=== PATIENT | male | born 1990 | race Caucasian/White ===

== ENCOUNTER 2024-02-04 14:54 | Emergency (ER) | payer OTHER ==
--- NOTE | 2024-02-04 15:39 | ERPHSYRPT ---
- History of Present Illness Time Seen by Provider: 02/04/24 15:39 Historian: patient Exam Limitations: no limitations Physician History: The patient presents with acute onset of left-sided rib pain that began two days prior. The pain started after a day of heavy lifting and moving boxes, during which the patient stumbled and dropped a box. The pain has progressively wo rsened, with the patient waking up the following day in severe pain, described as shooting pain along the left lower rib cage, exacerbated by deep breathing. The patient denies any other associated symptoms such as difficulty urinating, bowel changes, nausea, vomiting, diarrhea, constipation, or fever. There is a reported slight shortness of breath, but no cough. The patient has not noticed any blood in her urine and denies any history of kidney stones. The patient has attempted to manage the pain with [id number] Tylenol and Advil, but these have provided no relief. The patient denies any history of blood thinners, stomach ulcers, or kidney problems. Timing/Duration: day(s) (2) Activities at Onset: activity Quality: sharpness, stabbing Abdominal Pain Onset Location: flank (left) Pain Radiation: no radiation Severity of Pain-Max: severe Severity of Pain-Current: severe Modifying Factors: Worsens With: breathing, coughing, exercise, movement, palpation Associated Symptoms: denies symptoms Previous symptoms: no prior history Allergies/Adverse Reactions: No Known Drug Allergies Allergy (Verified 02/04/24 15:37) - Review of Systems All Other Systems: Reviewed and Negative - Nursing Vital Signs Nursing Vital Signs: Initial Vital Signs Blood Pressure 132/94 02/04/24 15:31 Pain Scale Pain Intensity 9 - Physical Exam General Appearance: mild distress, obese Eye Exam: PERRL/EOMI Ears, Nose, Throat Exam: normal ENT inspection Neck Exam: normal inspection, full range of motion Respiratory Exam: normal breath sounds, lungs clear, No respiratory distress, No airway intact Cardiovascular Exam: regular rate/rhythm, capillary refill <2 sec, No edema Gastrointestinal/Abdomen Exam: soft, No tenderness, No distention, No mass, No guarding, No rebound Back Exam: normal inspection, other (left sided rib pain, mid axillary line to sternum along ribs 3-9), No CVA tenderness, No muscle spasm Neurologic Exam: alert, oriented x 3, cooperative Skin Exam: normal color, warm, dry SpO2 Interpretation: normal O2 Delivery: Room Air - Course Nursing assessment & vital signs reviewed: Yes - CT Exams Abdomen/Pelvis CT Interpretation: Tele-radiologist Report, Normal Appendix, Other (mild hepatomegaly, bilateral pars fx L5/S1) Ordered Tests: Medication Summary Discontinued Medications Generic Name Dose Route Start Last Admin Trade Name Pierre PRN Reason Stop Dose Admin Cyclobenzaprine HCl 10 mg 02/04/24 15:41 02/04/24 16:21 Cyclobenzaprine Hcl 10 Mg Tablet PO 02/04/24 15:42 10 mg STAT ONE Administration Cyclobenzaprine HCl Confirm 02/04/24 16:11 Cyclobenzaprine Hcl 10 Mg Tablet Administered 02/04/24 16:12 Dose 10 mg .ROUTE .STK-MED ONE Sodium Chloride 1,000 mls @ 999 mls/hr 02/04/24 15:39 02/04/24 17:21 Sodium Chloride 0.9% 1000 Ml IV 02/04/24 16:39 Infused .Q1H1M STA Infusion Sodium Chloride Confirm 02/04/24 16:11 Sodium Chloride 0.9% 1000 Ml Administered 02/04/24 16:12 Dose 1,000 mls @ ud .ROUTE .STK-MED ONE Ketorolac Tromethamine 30 mg 02/04/24 15:39 02/04/24 16:19 Ketorolac Tromethamine 30 Mg/Ml Inj IV 02/04/24 15:40 30 mg STAT ONE Administration Ketorolac Tromethamine Confirm 02/04/24 16:11 Ketorolac Tromethamine 30 Mg/Ml Inj Administered 02/04/24 16:12 Dose 30 mg .ROUTE .STK-MED ONE Lidocaine 1 patch 02/04/24 15:45 02/04/24 16:21 Lidocaine Hcl 1 Patch Patch TOP 02/04/24 15:46 1 patch ONCE ONE Administration Lab/Rad Data: Laboratory Result Diagrams 02/04/24 16:00 02/04/24 16:00 Laboratory Results 02/04/24 02/04/24 02/04/24 Range/Units 16:00 16:00 15:42 WBC 5.5 (4.23-9.07) x10^3/uL RBC 4.70 (4.63-6.08) x10^6/uL Hgb 14.6 (13.7-17.5) g/dL Hct 42.9 (40.1-51.0) % MCV 91.3 (79.0-92.2) fL MCH 31.1 (25.7-32.2) pg MCHC 34.0 (32.3-36.5) g/dL RDW 12.9 (11.6-14.4) % Plt Count 290 (163-337) x10^3/uL MPV 9.4 (9.4-12.4) fL Gran % 60.9 (34.0-67.9) % Immature Gran % (Auto) 0.2 (0.001-0.429) % Nucleat RBC Rel Count 0.0 (0.00-0.2) % Eos # (Auto) 0.06 (0.04-0.54) x10^3/uL Immature Gran # (Auto) 0.01 (0.001-0.031) x10^3u/L Absolute Lymphs (auto) 1.48 (1.32-3.57) x10^3/uL Absolute Monos (auto) 0.57 (0.30-0.82) x10^3/uL Absolute Nucleated RBC 0.00 (0.00-0.012) x10^3u/L Lymphocytes % 27.0 (21.8-53.1) % Monocytes % 10.4 (5.3-12.2) % Eosinophils % 1.1 (0.8-7.0) % Basophils % 0.4 (0.2-1.2) % Absolute Granulocytes 3.34 (1.78-5.38) x10^3/uL Basophils # 0.02 (0.01-0.08) x10^3/uL Sodium 139 (135-145) mmol/L Potassium 3.5 (3.5-5.1) mmol/L Chloride 103 (98-107) mmol/L Carbon Dioxide 32 H (22-30) mmol/L Anion Gap 7.6 (5-15) MEQ/L BUN 5 L (9-20) mg/dL Creatinine 0.74 (0.66-1.25) mg/dL Estimated GFR 121.2 ML/MIN Glucose 86 (74-106) mg/dL Calcium 9.3 (8.4-10.2) mg/dL Total Bilirubin 0.50 (0.2-1.3) mg/dL AST 57 (17-59) U/L ALT 70 H (0-50) U/L Alkaline Phosphatase 103 (38-126) U/L Serum Total Protein 7.8 (6.3-8.2) g/dL Albumin 4.3 (3.5-5.0) g/dL Urine Color Dark Yellow (Yellow) Urine Appearance Clear (Clear) Urine pH 6.0 (4.6-8.0) Ur Specific [place] >=1.030 A (1.005-1.030) Urine Protein Trace A (Negative) Urine Glucose (UA) Negative (Negative) mg/dL Urine Ketones Trace A (Negative) Urine Blood Negative (Negative) Urine Nitrite Negative (Negative) Urine Bilirubin Small A (Negative) Urine Urobilinogen 1.0 A (0.2) mg/dL Ur Leukocyte Esterase Negative (Negative) U Hyaline Cast (Auto) 3-5 A (0-2) /LPF Urine Microscopic RBC 0-2 (0-5) /HPF Urine Microscopic WBC 3-5 (0-5) /HPF Ur Epithelial Cells None Seen (None Seen) /HPF Urine Bacteria None Seen (None Seen) /HPF Urine Culture Reflexed NO (NO) - Progress Progress: improved Progress Note: Labs showed milt transaminitis otherwise unremarkable. Pain improved with NSAIDs, muscle relaxer and lidocaine patch. CT neg for acute abd pathology, mild hepatomegaly, b/l pars fx L5/S1. Recommended PT. Counseled pt/family regarding: lab results, diagnosis, need for follow-up, rad results Medical Desision Making - Diagnostic Testing Diagnostic test were ordered, analyzed, and reviewed by me: Yes Radiological Interpretation: Interpreted by me, Reviewed by me, Teleradiologist Report - Risk of complications The pt has a mod risk of morbidity or mortality based on: Need for prescription drug management - Departure Departure Disposition: Home Clinical Impression: Intercostal muscle strain, Muscle spasm of back, Pars defect with spondylolisthesis Condition: Good Critical Care Time: No Referrals: ESTHER DSOUZA TRANSPORTATION SPECIALIST [Primary Care Provider] - Follow up/PCP as directed Instructions: Spondylolysis Prescriptions: Cyclobenzaprine HCl 10 mg PO TID PRN 7 Days #21 tablet PRN Reason: Muscle Spasms Diclofenac Sodium 75 mg PO BID PRN 7 Days #14 PRN Reason: Pain Lidocaine HCl 5% Patch [Lidoderm Patch 5%] 1 patch TP DAILY PRN 7 Days #7 patch PRN Reason: Pain
[2024-02-04 15:48] VITALS: TEMP 98
[2024-02-04 15:53] LABS: Appearance Clear (Clear); Bacteria None Seen /HPF (None Seen); Bilirubin Small (Negative); Blood Negative (Negative); Epithelial Cells None Seen /HPF (None Seen); Glucose, Urine Negative (Negative); Ketones Trace (Negative); Leukocyte Esterase Negative (Negative); Nitrite Negative (Negative); Protein,Urine Dip Trace (Negative); RBC 0-2 /HPF (0-5); Specific Gravity >=1.030 (1.005-1.030)
[2024-02-04 15:55] LABS: ADD URINE CULTURE? NO (NO)
[2024-02-04 16:08] LABS: Absolute Neutrophil Ct (ANC) 3.34 x10^3/uL (1.78-5.38); BASOPHIL % 0.4 % (0.2-1.2); Basophil (Absolute #) 0.02 x10^3/uL (0.01-0.08); Eosinophil % 1.1 % (0.8-7.0); Eosinophil (Absolute #) 0.06 x10^3/uL (0.04-0.54); Hematocrit 42.9 % (40.1-51.0); Hemoglobin 14.6 g/dL (13.7-17.5); IMMATURE GRAN # 0.01 x10^3u/L (0.001-0.031); IMMATURE GRAN % 0.2 % (0.001-0.429); Lymphocyte (Absolute #) 1.48 x10^3/uL (1.32-3.57); Mean Cell Volume 91.3 fL (79.0-92.2); Mean Corpuscular Hemoglobin 31.1 pg (25.7-32.2); Mean Platelet Volume 9.4 fL (9.4-12.4); Monocyte (Absolute #) 0.57 x10^3/uL (0.30-0.82); Monocytes % 10.4 % (5.3-12.2); Neutrophil % 60.9 % (34.0-67.9); Platelet Count 290 x10^3/uL (163-337); Red Cell Distribution Width 12.9 % (11.6-14.4); White Blood Count 5.5 x10^3/uL (4.23-9.07)
[2024-02-04] MEDS ORDERED: TORAdol 30 mg Injection ONE (16:11)
[2024-02-04] MEDS ORDERED: Sodium Chloride 0.9% 1000 ML 1,000 ML ONE (16:11)
[2024-02-04] MEDS ORDERED: Cyclobenzaprine 10 MG ONE (16:11)
[2024-02-04] MEDS: Sodium Chloride 0.9% 1000 ML 1,000 ML IV STA (16:17)
[2024-02-04] MEDS: TORAdol 30 mg Injection IV ONE (16:19)
[2024-02-04] MEDS: Cyclobenzaprine 10 MG PO ONE (16:21)
[2024-02-04] MEDS: Lidoderm Patch 5% TOP ONE (16:21)
[2024-02-04 16:22] LABS: ALBUMIN 4.3 g/dL (3.5-5.0); ANION GAP 7.6 MEQ/L (5-15); BILIRUBIN,TOTAL 0.5 mg/dL (0.2-1.3); Calcium 9.3 mg/dL (8.4-10.2); Creatinine 1 0.74 mg/dL (0.66-1.25); EST GLOMERULAR FILTRATION RATE 121.2 ML/MIN; Potassium 3.5 mmol/L (3.5-5.1); Total Protein 7.8 g/dL (6.3-8.2)
[2024-02-04 17:24] VITALS: BP 116/67; PULSE 87; RESP 18; O2SAT 98
--- NOTE | 2024-02-04 17:34 | XRAY ---
CLINICAL HISTORY: flank pain COMPARISON: No prior studies are available for comparison. TECHNIQUE: Non-contrast CT of the abdomen and pelvis was performed, with the following protocol: axial images with reconstructed coronal and sagittal images. One of the following dose reduction techniques was utilized for this exam: Automated exposure control, adjustment of the mA and/or kV according to patient size, and use of iterative reconstruction. FINDINGS: Abdomen: Liver: Mild enlarged with fatty infiltration. No focal lesions, cysts, or masses were identified. Hepatic biliary ducts are unremarkable. Gallbladder and Biliary System: Cholecystectomy clips are noted in the gall bladder fossa. The common bile duct is normal in caliber without dilation. Pancreas: Pancreatic head, body, and tail are visualized and appear normal in size and density. No pancreatic masses or calcifications were noted. The pancreatic duct is not dilated. Spleen: Normal in size, shape, and density. No splenic lesions or masses were identified. Kidneys and Adrenal Glands: Both kidneys are normal in size, shape, and position. Cortical thickness is within normal limits. No renal calculi or hydronephrosis. Adrenal glands are unremarkable with no evidence of masses or hyperplasia. Pelvis: Urinary Bladder: Normal in contour and wall thickness. No intraluminal lesions were identified. Prostate and seminal vesicles appear unremarkable. Bowel: Fecal loading is noted in the large bowel. No evidence of bowel obstruction and pneumoperitoneum. No ascites noted. Normal appendix is noted. The tip is noted in the subhepatic region ( history paper attached mention status post appendectomy, needs confirmation with previous surgical notes). Bones and Soft Tissues: Straightening of lumbar curvature is noted suggestive of muscular spasm. A bilateral pars interarticularis fracture is noted with grade I anterior spondylolisthesis at L5/S1. Covered lung bases appear clear. IMPRESSION: Mild Hepatomegaly with steatosis. No CT evidence of hydronephrosis, or urolithiasis. Normal appendix is noted. The tip is noted in the subhepatic region ( history paper attached mention status post appendectomy, needs confirmation with previous surgical notes) . Bilateral pars interarticularis fracture is noted with grade I anterior spondylolisthesis at L5/S1. Electronically Signed by: Bret Woods MD. (02/04/2024 17:28:48 EDT)
== END 2024-02-04 17:59 | disposition home or self-care (01) ==
LOC: ED 14:54
DX: S29.011A Strain of muscle and tendon of front wall of thorax, initial encounter (principal); X50.0XXA Overexertion from strenuous movement or load, initial encounter; M62.830 Muscle spasm of back; M43.17 Spondylolisthesis, lumbosacral region; R07.81 Pleurodynia; Z79.899 Other long term (current) drug therapy
CPT/HCPCS: 36000; 36415; 74176; 80053; 81001; 85025; 96374; 99284; J1885; A9270-GY